=== PATIENT | female | born 1980 | race Caucasian/White ===

== ENCOUNTER 2023-02-16 08:22 | Day surgery (SDC) | payer BC ==
[2023-02-09 10:55] LABS: BASOPHILS # (AUTO) 0.1 X10'3 (0-0.2); BASOPHILS % (AUTO) 0.6 % (0-1); EOSINOPHILS # (AUTO) 0.1 X10'3 (0-0.9); EOSINOPHILS % (AUTO) 0.5 % (0-6); LYMPHOCYTES # (AUTO) 4.7 X10'3 (1.1-4.8); LYMPHOCYTES % (AUTO) 43.3 % (21-51); MEAN CORPUSCULAR HEMOGLOBIN 29.2 PG (27.0-31.0); MEAN CORPUSCULAR HGB CONC 32.8 g/dL (33.0-36.5); MEAN CORPUSCULAR VOLUME 88.9 FL (78-98); MEAN PLATELET VOLUME 9.5 FL (7.4-10.4); MONOCYTES # (AUTO) 0.7 X10'3 (0-0.9); MONOCYTES % (AUTO) 6.8 % (2-12); NEUTROPHILS # (AUTO) 5.2 X10'3 (1.8-7.7); NEUTROPHILS % (AUTO) 48.8 % (42-75); PRE OP HEMATOCRIT 46.9 % (35.0-45.0); PRE OP HEMOGLOBIN 15.4 g/dL (12.0-16.0); PRE OP PLATELET COUNT 339 X10'3 (140-440); RED BLOOD COUNT 5.28 X10'6 (4.20-5.60); RED CELL DISTRIBUTION WIDTH 12.8 % (11.5-14.5)
[2023-02-09 11:08] LABS: ALANINE AMINOTRANSFERASE 26 U/L (12-78); ALBUMIN 4.1 G/DL (3.4-5.0); ALBUMIN/GLOBULIN RATIO 1.1 (1.1-1.5); ALKALINE PHOSPHATASE 64 IU/L (46-116); ANION GAP 6 (8-16); ASPARTATE AMINO TRANSFERASE 16 U/L (10-37); BILIRUBIN,TOTAL 0.3 MG/DL (0.1-1.0); BLOOD UREA NITROGEN 7 MG/DL (7-18); BUN/CREATININE RATIO 9.1 (10.0-20.0); CHLORIDE 106 MMOL/L (99-107); CREATININE 0.77 MG/DL (0.40-0.90); GLUCOSE 96 MG/DL (70-104); SODIUM 138 MMOL/L (135-145); TOTAL CARBON DIOXIDE 25.7 MMOL/L (24-32); TOTAL PROTEIN 7.7 G/DL (6.4-8.2); eGFR 82 ML/MIN
[~2023-02-16] VITALS: Ht 162.6 cm; Wt 63.1 kg
[2023-02-16] VITALS (8 sets, daily range): BP systolic 107–142; BP diastolic 66–81
[~2023-02-16 08:22] MED LIST: ALPR2TAB7 PO; BUPIVAcaine/PF 2.5mg/ml (0.25%) 10ml vial ONE; cefazolin 2gm/D5W 100mL 100 ML IV ONE; famotidine 20mg tablet PO ONE; ringers solution, lacted 500 ML IV SCH
[2023-02-16] MEDS ORDERED: morphine 2 MG/ML inj. syringe IV PRN (09:45)
[2023-02-16] MEDS ORDERED: ondansetron/PF 4mg/2ml inj IV PRN (09:45)
[2023-02-16] MEDS ORDERED: morphine 4 MG/ML inj SYRINge IV PRN (09:45)
[2023-02-16] MEDS ORDERED: ringers solution, lacted 1,000 ML IV SCH (09:45)
[2023-02-16] MEDS ORDERED: proCHLORperazine 10 MG/2 ml inj IV PRN (09:45)
[2023-02-16] MEDS ORDERED: meperidine/PF 25mg/ml syringe IV PRN ×3 (09:45)
[2023-02-16] MEDS ORDERED: sevoflurane 250ml liquid IH ONE (11:12)
[2023-02-16] MEDS ORDERED: fentaNYL/PF 50MCG/1 ML 2ML syringe ONE (11:13)
[2023-02-16] MEDS ORDERED: midazolam 1 mg/ML 2ml injection ONE (11:13)
[2023-02-16] MEDS ORDERED: dexamethasone sod phosphate 4mg/ml inj. ONE (11:31)
[2023-02-16] MEDS ORDERED: propofol inj 20 ML IV ONE (11:31)
[2023-02-16] MEDS ORDERED: ondansetron/PF 4mg/2ml inj ONE (11:32)
--- NOTE | 2023-02-16 11:59 | NUR ---
Received from OR via [facility], accompanied by Anesthesiologist DR GILMAN and report given by Anesthesiologist AND BINGO CLERK. PT VERY DROWSY W/LMA IN PLACE. BILAT HANDS/WRISTS W/CHEN DRSG COVERING INCISION CDI. PT AWAKENED AFTER 10 MINUTES, LMA REMOVED, PT DENIES PAIN. ICE BAGS APPLIED TO BILAT WRISTS. Addendum: 02/16/23 at 1224 by Lucía Delaney RN Amended: Links added.
--- NOTE | 2023-02-16 13:09 | NUR ---
PT UP AND ABLE TO AMBULATE SAFELY, REMAINS PAIN FREE. D/C INSTRUCTIONS GIVEN AND GONE OVER W/PT WHO VERBALIZED UNDERSTANDING. PT D/CD TO HOME VIA W/C TO PRIVATE VEHICLE W/O INCIDENT. Addendum: 02/16/23 at 1326 by Lucía Delaney RN Amended: Links added.
== END 2023-02-16 13:09 | disposition home or self-care (01) ==
LOC: PRE-OP 08:22
PROVIDERS: ATTEND Orthopaedic Surgery Hand Surgery
DX: G56.03 Carpal tunnel syndrome, bilateral upper limbs (principal); F41.1 Generalized anxiety disorder; F17.210 Nicotine dependence, cigarettes, uncomplicated; Z85.41 Personal history of malignant neoplasm of cervix uteri; Z90.710 Acquired absence of both cervix and uterus; Z79.899 Other long term (current) drug therapy
CPT/HCPCS: 29848; 36415; 80053; 82948; 85025; J0690; J1100; J2250; J2405; J2704; J3010; J3490; J7030; J7120; Z7506; Z7512; A4215; A7000